=== PATIENT | female | born 1960 | race Caucasian/White ===

== ENCOUNTER → 2017-07-05 | Outpatient (CLI) | payer OTHER | END | disposition home or self-care (01) | LOC: KCIC MRI 12:56 | DX: M50.11 Cervical disc disorder with radiculopathy, high cervical region (principal); M48.02 Spinal stenosis, cervical region; M25.78 Osteophyte, vertebrae; M47.892 Other spondylosis, cervical region | CPT/HCPCS: 72141 ==

== ENCOUNTER → 2018-07-31 | Outpatient (CLI) | payer OTHER ==
--- NOTE | 2018-07-31 17:56 | KCIC ---
Bilateral digital screening mammograms with 3-D tomosynthesis: Reason for examination: Routine screening. Comparison is made to previous studies dated 08/16/2014 and 11/20/2010. Bilateral mammograms in CC and oblique projections were obtained with 2-D imaging and 3-D tomosynthesis imaging on a Siemens Inspiration unit and reviewed on the workstation. Interpretation was made with the benefit of CAD. The skin and nipples show no abnormalities. No abnormal axillary lymph nodes are seen. The breast parenchyma is extremely dense. (Breast density: Category D.) There are no dominant masses, suspicious calcifications or architectural distortion. Impression: No evidence of malignancy. Recommend routine screening. Your patient's mammogram demonstrates that she has dense breast tissue (breast density category C or D), which could hide abnormalities, and if she has other risk factors for breast cancer that have been identified, she might benefit from supplemental screening tests that may be suggested by you as her ordering physician. Dense breast tissue, in and of itself, is a relatively common condition. Therefore, this information is not provided to cause undue concern, but rather to raise your awareness and to promote discussion with your patient regarding the presence of other risk factors, in addition to dense breast tissue. Your patient's mammography results will be sent to her. BI-RAD Category 1: Negative. "Our facility is accredited by the [employer] Mammography Program." This patient's information has been entered into a reminder system for the patient to be notified with the results of her examination and a target date for the next mammogram. Electronically signed by: Cherie Vega MD (07/31/2018 5:53 PM) [id number]
== END | disposition home or self-care (01) ==
LOC: KCIC MAMMO 14:28
PROVIDERS: ATTEND Family Medicine
DX: Z12.31 Encounter for screening mammogram for malignant neoplasm of breast (principal)
CPT/HCPCS: 77063; 77067

== ENCOUNTER → 2019-09-25 | Outpatient (CLI) | payer OTHER ==
--- NOTE | 2019-09-25 13:05 | KCIC ---
EXAM: Cervical spine, 2 views. HISTORY: Pain. COMPARISON: None. FINDINGS: 2 views of the cervical spine are obtained. There is cervical kyphosis centered at C5-C6. There is mild anterolisthesis of C4 on C5 and C7 on T1. There is degenerative endplate remodeling with disc space narrowing and osteophytosis at C5-C6 and C6-C7. There is multilevel facet arthropathy. IMPRESSION: 1. Multilevel degenerative change, primarily at C5-C7. 2. Cervical kyphosis and mild anterolisthesis at the aforementioned levels. Electronically signed by: Tejal Mcgrath MD (09/25/2019 1:02 PM) [id number]
== END ==
LOC: KCIC 10:50
PROVIDERS: ATTEND Neurological Surgery
DX: M47.22 Other spondylosis with radiculopathy, cervical region (principal); M48.02 Spinal stenosis, cervical region; M40.292 Other kyphosis, cervical region
CPT/HCPCS: 72040

== ENCOUNTER → 2019-10-12 | Outpatient (CLI) | payer OTHER ==
--- NOTE | 2019-10-12 15:38 | KCIC ---
MRI Cervical Spine Without Contrast History: Cervical radiculopathy, left upper extremity pain Technique: Multiplanar, multi sequential noncontrast MR imaging was performed of the cervical spine. Comparison: July 05, 2017 Findings: There is some motion degradation. Cervical cord caliber is within normal limits without defined or expansile signal abnormality. Cervical vertebral body stature is maintained. There is again segmental reversal of lordotic curvature at C5-6. There is grade 1 anterior spondylolisthesis C4-5 and minimal posterior subluxation C5 relative to C6 and C6 relative to C7. There is again moderate to severe degenerative disc disease at C6-7 and to a lesser degree at C5-6. There is trace C5-6 and C6-7 endplate edema likely reactive/degenerative in etiology. C2-C3: There is left facet hypertrophic change contributing to increased likely at least moderate narrowing of the left neural foramen. There is mild uncovertebral degenerative change. Spinal canal is adequate. Right neural foramen is not significantly narrowed. C3-C4: There is again bilateral facet degenerative change greater on the left. Central canal is again borderline about 10 mm. There is mild left uncovertebral degenerative change. Right neural foramen is adequate. There is moderate to severe narrowing of the left neural foramen. C4-C5: There is severe bilateral facet degenerative change as seen previously. Central canal is borderline about 10 mm. There is [id number] left and mild right neural foramina compromise. C5-C6: There is again disc osteophyte complex and bulge. Central canal is narrowed to about 7 to 8 mm. There is facet and uncovertebral degenerative change. There is again severe bilateral neural foramina compromise. C6-C7: There is again disc osteophyte complex, superimposed bulge/broad protrusion with contact of the ventral cord, central canal narrowed to about 6 to 7 mm. There is again facet and uncovertebral degenerative change contributing to severe neural foramina compromise bilaterally. C7-T1: Neural foramina and spinal canal are adequate. Impression: 1. Findings are fairly similar other than increased narrowing of the left C2-3 neural foramen. There is multilevel facet and uncovertebral degenerative change contributing to multilevel cervical neural foramina compromise, severe narrowing bilaterally at C5-6 and C6-7 and moderate to severe narrowing on the left at C3-4, to a lesser degree on the left at C2-3 and C4-5. 2. There is again degenerative disc disease and spondylosis greatest at C5-6 and C6-7. 3. There is spinal stenosis about 6 to 7 mm at C6-7 and to a somewhat lesser degree at C5-C6. Electronically signed by: Luis Cervantes MD (10/12/2019 3:36 PM) [id number]
== END ==
LOC: KCIC MRI 13:42
PROVIDERS: ATTEND Neurological Surgery
DX: M50.123 Cervical disc disorder at C6-C7 level with radiculopathy (principal); M48.02 Spinal stenosis, cervical region; M47.22 Other spondylosis with radiculopathy, cervical region; M25.78 Osteophyte, vertebrae
CPT/HCPCS: 72141

== ENCOUNTER → 2020-06-23 | Outpatient (CLI) | payer OTHER ==
--- NOTE | 2020-06-23 18:08 | KCIC ---
INDICATION: Reason: Post Menopausal Bleeding; LMP 3 yrs ago / Spl. Instructions: / History: COMPARISON: None. TECHNIQUE: Grayscale and color ultrasound images uterus and adnexa. Transabdominal and transvaginal images obtained. Transvaginal images were needed to better visualize structures that were limited on transabdominal imaging. FINDINGS: Uterus: 95 x 49 mm. 5 mm endometrial stripe Right Ovary: 24 x 12 x 18 mm. Left Ovary: 23 x 13 x 14 mm. Vascular flow identified to bilateral ovaries. Within the right anterior aspect of the uterus there is a 22 x 15 mm solid mass. There is some hypoec hoic material at the cervix with the nodular density with the hypoechoic component measuring up to 24 x 14 x 7 mm. The nodular component measures 5 x 3 mm. IMPRESSION: * Hypoechoic solid lesion within the uterus most commonly from fibroid. * Hypoechoic material at the cervical region with a central echogenic component. This could be secon dariel to some complex fluid within the area with a polypoid lesion at the cervix. Would correlate with physical exam findings. Electronically signed by: Yo Fall MD (06/23/2020 6:05 PM) [id number]
== END ==
LOC: KCIC US 15:09
PROVIDERS: ATTEND Family Medicine
DX: N95.0 Postmenopausal bleeding (principal); N85.9 Noninflammatory disorder of uterus, unspecified
CPT/HCPCS: 76830; 76856

== ENCOUNTER → 2021-01-11 | Outpatient (CLI) | payer OTHER ==
--- NOTE | 2021-01-11 16:04 | KCIC ---
XR FOOT_LEFT 3 VIEWS DATE: 01/11/2021 2:40 PM INDICATION: LEFT FOOT PAIN. Pain on top of midfoot since Oct, not improving. COMPARISON: None. FINDINGS: Bones: There is no evidence of acute fracture or dislocation. Joints: The joint spaces are normal. Miscellaneous: None. IMPRESSION: Normal osseous structures Electronically signed by: Luis Sinclair MD (01/11/2021 4:02 PM) [id number]
== END ==
LOC: KCIC 14:36
PROVIDERS: ATTEND Family Medicine
DX: M79.672 Pain in left foot (principal)
CPT/HCPCS: 73630